=== PATIENT | male | born 1955 | race Caucasian/White ===

== ENCOUNTER 2019-08-10 06:02 | Emergency (ER) | payer OTHER ==
[~2019-08-10] VITALS: Ht 180.3 cm; Wt 80.8 kg
[2019-08-10 06:12] VITALS: BP 102/76
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
[2019-08-10] MEDS ORDERED: LIDOCAINE-MPF 1%, 5ML ONE (06:25)
[2019-08-10] MEDS ORDERED: LIDOCAINE-MPF 1%, 5ML INFIL ONE (06:30)
--- NOTE | 2019-08-10 06:51 | NUR ---
EAR IRRIGATED FOR SUTURES.
[2019-08-10] MEDS ORDERED: NEOSPORIN OINT. PKT 1 PACKET ONE (07:39)
--- NOTE | 2019-08-10 07:53 | NUR ---
Patient given discharge instructions and they have confirmed that they understand the instructions. Patient ambulatory with steady gait.
== END 2019-08-10 07:54 | disposition home or self-care (01) ==
LOC: ED 07:30
DX: S01.312A Laceration without foreign body of left ear, initial encounter (principal); W19.XXXA Unspecified fall, initial encounter; Y93.89 Activity, other specified; Y92.89 Other specified places as the place of occurrence of the external cause; Y99.8 Other external cause status
CPT/HCPCS: 12052; 12053; 99284; 99285